=== PATIENT | male | born 1990 | race Asian ===

== ENCOUNTER 2020-09-15 18:15 | Emergency (ER) | payer SELFPAY ==
[2020-09-15 18:23] VITALS: BP 136/86
--- NOTE | 2020-09-15 18:56 | Emergency Department Report ---
ED General Adult HPI - General Chief complaint: Abdominal Pain Stated complaint: ABD PAIN Time Seen by Provider: 09/15/20 18:36 Source: patient Mode of arrival: Ambulatory Limitations: No Limitations - History of Present Illness Initial comments: Patient is a 30-year-old male presents emergency room complaints of constipation that began 6 days ago. He states that he took magnesium citrate and used a suppository. He states he is only able to get small pellets of stool out but not able to have a full bowel movement. He states that it is causing pain secondary to wanting to have a bowel movement. He is still tolerating p.o. intake and eating and drinking. He denies any fever, nausea, vomiting, diarrhea, hematochezia, hematemesis, melena. No past medical history. No allergies to medications. No past abdominal surgical history. - Related Data Previous Rx's Medication Instructions Recorded Last Taken Type Docusate Sodium [Colace] 100 mg PO BID PRN #20 capsule 09/15/20 Unknown Rx Lactulose 10 gm PO ONCE PRN #7 packet 09/15/20 Unknown Rx Sodium Phosphate,Kershaw-Dibasic 133 ml RC ONCE #1 enema 09/15/20 Unknown Rx [Enema Ready To Use] Allergies Allergy/AdvReac Type Severity Reaction Status Date / Time No Known Allergies Allergy Unverified 09/15/20 18:20 ED Review of Systems ROS: Stated complaint: ABD PAIN Other details as noted in HPI Comment: All other systems reviewed and negative ED Past Medical Hx - Past Medical History Previous Medical History?: No - Surgical History Past Surgical History?: No - Medications Home Medications: Home Medications Medication Instructions Recorded Confirmed Last Taken Type Docusate Sodium [Colace] 100 mg PO BID PRN #20 capsule 09/15/20 Unknown Rx Lactulose 10 gm PO ONCE PRN #7 packet 09/15/20 Unknown Rx Sodium Phosphate,Kershaw-Dibasic 133 ml RC ONCE #1 enema 09/15/20 Unknown Rx [Enema Ready To Use] ED Physical Exam - General Limitations: No Limitations General appearance: alert, in no apparent distress - Head Head exam: Present: atraumatic, normocephalic - Eye Eye exam: Present: normal appearance - ENT ENT exam: Present: mucous membranes moist - Respiratory Respiratory exam: Present: normal lung sounds bilaterally. Absent: respiratory distress, wheezes, rales, rhonchi, stridor, chest wall tenderness, accessory muscle use, decreased breath sounds, prolonged expiratory - Cardiovascular Cardiovascular Exam: Present: regular rate, normal rhythm, normal heart sounds. Absent: systolic murmur, diastolic murmur, rubs, gallop - GI/Abdominal GI/Abdominal exam: Present: soft, normal bowel sounds. Absent: distended, tenderness, guarding, rebound, rigid - Neurological Exam Neurological exam: Present: alert, oriented X3 - Psychiatric Psychiatric exam: Present: normal affect, normal mood - Skin Skin exam: Present: warm, dry, intact ED Course Vital Signs 09/15/20 18:22 Temperature 98.4 F Pulse Rate 83 Respiratory 16 Rate Blood Pressure 136/86 O2 Sat by Pulse 97 Oximetry ED Medical Decision Making - Medical Decision Making Patient is a 30-year-old male presents emergency room complaints of constipation that began 6 days ago. He states that he took magnesium citrate and used a suppository. He states he is only able to get small pellets of stool out but not able to have a full bowel movement. He states that it is causing pain secondary to wanting to have a bowel movement. He is still tolerating p.o. intake and eating and drinking. He denies any fever, nausea, vomiting, diarrhea, hematochezia, hematemesis, melena. No past medical history. No allergies to medications. No past abdominal surgical history. Vitals are stable. No abdominal tenderness on exam, no guarding, no rebound, no rigidity, normal bowel sounds, no distention. Patient has no obstructive symptoms at this time, he is tolerating p.o. intake, he is still able to have small amounts of bowel movements. Patient given prescription for lactulose, Colace, enema. Discussed strict return precautions in detail with patient. Advised patient Please use medication as prescribed. Increase your water intake. Increase your fiber intake. Follow-up with your primary care doctor. Return to emergency room immediately for any new or worsening symptoms. Critical care attestation.: If time is entered above; I have spent that time in minutes in the direct care of this critically ill patient, excluding procedure time. ED Disposition Clinical Impression: Constipation Qualifiers: Constipation type: unspecified constipation type Qualified Code(s): K59.00 - Constipation, unspecified Disposition: TO HOME OR SELFCARE Is pt being admited?: No Does the pt Need Aspirin: No Condition: Stable Instructions: High-Fiber Diet, Constipation, Adult, Ivic-to-Xjwh Additional Instructions: Please use medication as prescribed. Increase your water intake. Increase your fiber intake. Follow-up with your primary care doctor. Return to emergency room immediately for any new or worsening symptoms. Prescriptions: Docusate Sodium [Colace] 100 mg PO BID PRN #20 capsule PRN Reason: constipation Sodium Phosphate,Kershaw-Dibasic [Enema Ready To Use] 133 ml RC ONCE #1 enema Lactulose 10 gm PO ONCE PRN #7 packet PRN Reason: constipation Referrals: [facility] [Provider Group] - 2-3 Days RAVINDRA FOLEY MD [Staff Physician] - 2-3 Days Time of Disposition: 18:52 Print Language: PERSIAN
== END 2020-09-15 20:18 | disposition home or self-care (01) ==
LOC: ED 18:15
DX: K59.00 Constipation, unspecified (principal); Z79.899 Other long term (current) drug therapy
CPT/HCPCS: 99281